=== PATIENT | male | born 1930 | race Caucasian/White ===

== ENCOUNTER → 2016-07-06 | Outpatient (REF) ==
[~2016-07-06] MED LIST: ALDACTONE50 MG PO; ARTIFICIAL TEAR15 M1 OP; ASPIRIN 81M81 MG/TA2 PO; CARDIZEM CD 30300 MG PO; CARDIZEM120 MG PO; CATAPRES 0.1MG0.1 MG PO; CORDARONE200 MG/TAB PO; COUMADIN 22.5 MG/TAB PO; COUMADIN 5MG5 MG/TAB PO; COZAAR 50MG50 MG/TAB PO; DEMADEX 20MG20 M1; DEMADEX 20MG20 M1 PO; DITROPAN 5MG TAB5 MG PO; EFFER-K20 MEQ PO; FLOMAX 0.40.4 MG/CAP PO; HYZAAR 50-12.1 UDTAB PO; IMDUR 30MG30 MG/TAB PO; IMDUR 60MG60 MG/TAB PO; JANTOVEN5 MG PO; K-DUR 10 MEQ T10 MEQ PO; K-DUR 2020 MEQ PO; KLOR-CON M1010 MEQ PO; MOTRIN 600600 MG/TAB PO; MULTIPLE VITAMI1 CAP PO; NITROSTAT0.4 MG/TAB SL; NORCO 325 MG-51 TAB PO; NORVASC 5MG5 MG/TAB PO; ONCE DAILY1 TA1; PERCOCET 325 MG1 TA2 PO; PROTONIX20 MG PO; RESTASIS 60VL OU; SYSTANE BALANCE10 M1 OP; TEARS NATURALE15 M1 OP; TENORMIN 5050 MG/TAB PO; XANAX .25M0.25 MG/TA PO; ZAROXOLYN5 MG PO; ZESTRIL 20MG TA20 MG PO; ZOCOR 10MG10 MG PO; ZOFRAN 4MG T4 MG/TAB PO; ZOFRAN ODT4 MG PO
== END ==
LOC: ZLAB.WCH 19:04
DX: Z01.89 Encounter for other specified special examinations (principal)

== ENCOUNTER → 2017-06-23 | Outpatient (REF) ==
[2017-06-23 15:17] LABS: THYROID STIMULATING HORMONE 1.12 uIU/mL (0.465-4.680)
[2017-06-23 15:23] LABS: PSA-TOTAL 0.5 ng/mL (0-4)
== END ==
LOC: ZLAB.WCH 14:23
PROVIDERS: Internal Medicine
DX: Z01.89 Encounter for other specified special examinations (principal)
CPT/HCPCS: G0103

== ENCOUNTER → 2017-12-02 | Outpatient (REF) | LOC: ZLAB.WCH 18:11 | DX: Z01.89 Encounter for other specified special examinations (principal) ==